=== PATIENT | male | born 1970 | race Caucasian/White ===

== ENCOUNTER 2018-04-28 09:42 | Day surgery (SDC) | payer OTHER ==
[~2018-04-28] VITALS: Ht 175.3 cm; Wt 83.9 kg
[~2018-04-28 09:42] MED LIST: AMLO10TA4 PO; NS 1,000 ML IV ONE; OMEP20CA3 PO
[2018-04-28] MEDS ORDERED: PROPOFOL 200 MG/20 ML VIAL As Ordered ONE (10:45)
[2018-04-28] MEDS ORDERED: LIDOCAINE 2% INJ 100 MG/5 ML SDV (FOR ANES.) As Ordered ONE (10:45)
--- NOTE | 2018-04-28 11:00 | ROOR ---
Patient Name: Calos Watson Procedure Date: 04/28/2018 10:38 AM Date of : 1970 Age: 47 Room: [facility] Gender: Male Note Status: Finalized Procedure: Colonoscopy Indications: Hematochezia, Family history of colon cancer in a first-degree relative Providers: Jayson VALDEZ MD Referring MD: SHELLEY GROVER MD Requesting Provider: Medicines: Monitored Anesthesia Care Complications: No immediate complications. Procedure: Pre-Anesthesia Assessment: - The heart rate, respiratory rate, oxygen saturations, blood pressure, adequacy of pulmonary ventilation, and response to care were monitored throughout the procedure. The Colonoscope was introduced through the anus and advanced to the cecum, identified by appendiceal orifice and ileocecal valve. The colonoscopy was performed without difficulty. The patient tolerated the procedure well. The quality of the bowel preparation was good. Findings: The perianal and digital rectal examinations were normal. (Exam: Complete, Prep: Good or Excellent.) A 12 mm polyp was found in the distal sigmoid colon. The polyp was pedunculated. An endoloop was maneuvered over the polyp stalk and closed at the mucosal attachment prior to removal in order to prevent bleeding. The polyp was removed with a hot snare. Resection and retrieval were complete. Small Internal Hemorrhoids. The exam was otherwise without abnormality on direct and retroflexion views. Impression: - One 12 mm polyp in the distal sigmoid colon, removed with a hot snare. Resected and retrieved. - Small Internal Hemorrhoids. - The examination was otherwise normal on direct and retroflexion views. Recommendation: - Repeat colonoscopy in 3 years for surveillance. Jayson Valdez MD Jayson VALDEZ MD 04/28/2018 11:00:22 AM This report has been signed electronically. Number of Addenda: 0 Note Initiated On: 04/28/2018 10:38 AM Estimated Blood Loss: Estimated blood loss: none.
[2018-04-28 11:15] VITALS: BP 122/62
== END 2018-04-28 11:25 | disposition home or self-care (01) ==
LOC: M OPP 09:42
PROVIDERS: ATTEND Internal Medicine Gastroenterology
DX: K92.1 Melena (principal); D12.5 Benign neoplasm of sigmoid colon; K64.8 Other hemorrhoids; Z80.0 Family history of malignant neoplasm of digestive organs

== ENCOUNTER → 2020-07-01 | Outpatient (CLI) | payer BC ==
[~2020-07-01] MED LIST changes: -AMLO10TA4 PO; +AMLO1TAB25 PO; -NS 1,000 ML IV ONE; +OMEP1CAP73 PO; -OMEP20CA3 PO
--- NOTE | 2020-07-01 19:25 | REP ---
INDICATION: ACUTE LYMPHADENITIS OF FACE HEAD NECK. COMPARISON: None. TECHNIQUE: Two views FINDINGS: Lungs are adequately inflated with no effusion, lateral pleural thickening, apical scarring or pneumothorax. There is no infiltrate, pulmonary nodule, atelectasis or mass. The heart, mediastinal hilar contours are normal. The aorta is mildly tortuous and calcified at the arch. Airway is midline. The bony thorax shows no focal lesion. IMPRESSION: No acute cardiopulmonary change. <Electronically signed by Robert Patel > 07/01/201921
== END ==
LOC: M WUC 15:08
PROVIDERS: ATTEND Internal Medicine
DX: L04.0 Acute lymphadenitis of face, head and neck (principal)

== ENCOUNTER → 2020-09-06 | Outpatient (CLI) | payer BC ==
[~2020-09-06] MED LIST changes: +ISOVUE-370 76% 100ML VIAL As Ordered ONE
--- NOTE | 2020-09-06 16:23 | REP ---
INDICATION: LT SUPRACLAVICULAR MASS. COMPARISON: Comparison chest x-ray 01 July 2020.. TECHNIQUE: Helical scanning is acquired following the intravenous injection of 75 mL of Isovue 370. 3 mm axial images are generated. Coronal and sagittal MPR and coronal MIP images are provided. FINDINGS: Digital preliminary filament shaper radiograph is unremarkable. No supraclavicular lymphadenopathy is appreciated. There is a left supraclavicular lymph node however this appears normal in size measuring only 7.7 mm in short axis dimension. No mediastinal mass or adenopathy is observed. No pleural or pericardial effusion is seen. There is no evidence of pulmonary embolus or aortic aneurysm or dissection. Minimal vascular calcification is present. No infiltrate or lung nodule is seen. In the lung buck. There is no evidence of endobronchial disease. There is minimal linear platelike atelectasis or fibrosis in the lingula at the left lung base. Bone window settings show no bony destructive lesion. In the upper abdomen normal adrenal glands are observed. The visualized upper abdominal structures are otherwise unremarkable. IMPRESSION: No active cardiopulmonary disease seen. <Electronically signed by Yonis Salomon > 09/06/20 [id number]
== END ==
LOC: M RAD 15:08
PROVIDERS: ATTEND Internal Medicine
DX: L04.0 Acute lymphadenitis of face, head and neck (principal)
CPT/HCPCS: 71260; Q9967

== ENCOUNTER → 2021-08-24 | Outpatient (CLI) | payer BC ==
[~2021-08-24] MED LIST changes: -ISOVUE-370 76% 100ML VIAL As Ordered ONE
== END ==
LOC: M LABSMTC 10:09
PROVIDERS: ATTEND Anesthesiology
DX: Z01.812 Encounter for preprocedural laboratory examination (principal); Z20.822 Contact with and (suspected) exposure to COVID-19

== ENCOUNTER 2021-08-29 08:12 | Day surgery (SDC) | payer BC ==
[~2021-08-29] VITALS: Ht 175.3 cm; Wt 85.3 kg
[~2021-08-29 08:12] MED LIST changes: +NS 1,000 ML IV ONE
[2021-08-29] MEDS ORDERED: propofoL 200 MG/20 ML VIAL As Ordered ONE (09:04)
[2021-08-29] MEDS ORDERED: LIDOCAINE 2% 100MG/5ML SDV (FOR ANES.) As Ordered ONE (09:04)
[2021-08-29 09:45] VITALS: BP 155/105
== END 2021-08-29 09:57 | disposition home or self-care (01) ==
LOC: M OPP 08:12
PROVIDERS: ATTEND Internal Medicine Gastroenterology
DX: Z12.11 Encounter for screening for malignant neoplasm of colon (principal); Z86.010 Personal history of colon polyps; Z80.0 Family history of malignant neoplasm of digestive organs; K63.5 Polyp of colon; K64.8 Other hemorrhoids; Z88.0 Allergy status to penicillin

== ENCOUNTER → 2022-04-20 | Outpatient (REF) | payer BC ==
[~2022-04-20] MED LIST changes: -NS 1,000 ML IV ONE
== END ==
LOC: M LAB REF 08:28
PROVIDERS: ATTEND Internal Medicine
DX: R19.7 Diarrhea, unspecified (principal)